=== PATIENT | female | born 1995 | race Caucasian/White ===

== ENCOUNTER 2020-06-21 14:05 | Inpatient (IN) | payer OTHER ==
[2020-06-21] MEDS ORDERED: AMPICILLIN - 2 GM in SODIUM CHLORIDE 100 ML IVPB ONE (14:15)
[2020-06-21 14:55] LABS: BASO % 0.6 % (0-2.0); EOS % 0.2 % (0-4.5); HEMATOCRIT 41.8 % (32.4-45.2); HEMOGLOBIN 13.9 GM/dL (10.7-15.3); LYMPH % 12.4 % (8-40); MCHC 33.3 g/dl (32.0-36.0); MEAN PLT VOLUME 9.6 fl (7.5-11.1); MONO % 2.8 % (3.8-10.2); PLATELET COUNT 194 K/MM3 (134-434); RBC 4.81 M/mm3 (3.60-5.2); RDW 13.4 % (11.6-15.6); RETICULOCYTES 2.08 % (0.5-1.5); WHITE BLOOD COUNT 13.4 K/mm3 (4.0-10.0)
[2020-06-21 14:57] LABS: INR 0.96 (0.83-1.09); PROTHROMBIN TIME (PATIENT) 11.6 SEC (9.7-13.0)
[2020-06-21 15:00] LABS: ACTIVATED PTT 26.2 SECONDS (25.2-36.5)
[2020-06-21 15:14] LABS: POTASSIUM 3.6 mmol/L (3.5-5.1)
[2020-06-21 15:15] LABS: CALCIUM 9.1 mg/dL (8.5-10.1)
[2020-06-21 15:16] LABS: BLOOD UREA NITROGEN 4.1 mg/dL (7-18)
[2020-06-21 15:19] LABS: CREATININE 0.6 mg/dL (0.55-1.3); URIC ACID 4.6 mg/dL (2.6-7.2)
[2020-06-21] MEDS ORDERED: AMPICILLIN SODIUM 2 GM VIAL ONE (16:07)
[2020-06-21] MEDS ORDERED: OXYTOCIN 30 UNITS in 0.9% NS 30 UNIT/500 ML INFUS.BAG IVPB ONE (16:07)
[2020-06-21] MEDS: ELECTROLYTE-148 SOLN 1,000 ML IV SCH (16:30)
[2020-06-21] MEDS: OXYTOCIN 30 UNITS in 0.9% NS 30 UNIT/500 ML INFUS.BAG IVPB SCH (17:15)
[2020-06-21 17:20] VITALS: BMI 35.9
[2020-06-21] MEDS ORDERED: ACETAMINOPHEN 325 MG TABLET (FP) ONE (20:15)
[2020-06-21] MEDS ORDERED: ACETAMINOPHEN 325 MG TABLET (FP) PO ONE (20:30)
[2020-06-21] MEDS ORDERED: AMPICILLIN SODIUM 1 GM VIAL ONE (20:39)
[2020-06-21] MEDS: AMPICILLIN SODIUM 1 GM VIAL IVPB SCH (20:40)
[2020-06-21] MEDS ORDERED: BUTORPHANOL TARTRATE 1 MG/ML VIAL IVPB ONE (21:23)
[2020-06-21] MEDS ORDERED: ACETAMINOPHEN 325 MG TABLET (FP) PO PRN (21:23)
[2020-06-21] MEDS ORDERED: BUTORPHANOL TARTRATE 1 MG/ML VIAL IVPB PRN (21:24)
[2020-06-21] MEDS ORDERED: BUTORPHANOL TARTRATE 2 MG/ML VIAL ONE (22:41)
[2020-06-22] MEDS ORDERED: AMPICILLIN SODIUM 1 GM VIAL ONE (00:38)
[2020-06-22] MEDS: AMPICILLIN SODIUM 1 GM VIAL IVPB SCH ×3 (00:40→09:59)
[2020-06-22] MEDS ORDERED: FENTANYL/BUPIVACAINE/NS/PF - PCEA - 50 ML DISP.SYRIN EP ONE (00:48)
[2020-06-22] MEDS ORDERED: PCA PUMP NR ONE (00:48)
[2020-06-22] MEDS ORDERED: BUPIVACAINE HCL/PF 0.25% (2.5MG/ML) 10 ML VIAL ONE (00:55)
[2020-06-22] MEDS: FENTANYL/BUPIVACAINE/NS/PF - PCEA - 50 ML DISP.SYRIN EP SCH (01:15)
[2020-06-22] MEDS ORDERED: NALOXONE HCL 0.4 MG/ML VIAL IVPUSH PRN (01:19)
[2020-06-22] MEDS: ELECTROLYTE-148 SOLN 1,000 ML IV SCH (01:25)
[2020-06-22] MEDS ORDERED: OXYTOCIN 20 UNITS in 0.9% NS 20 UNIT/1,000 ML INFUS.BAG IV ONE (01:50)
[2020-06-22] MEDS: OXYTOCIN 20 UNITS in 0.9% NS 20 UNIT/1,000 ML INFUS.BAG IV SCH (04:14)
[2020-06-22] MEDS ORDERED: METHYLERGONOVINE MALEATE 0.2 MG/1 ML AMP IM PRN (04:32)
[2020-06-22] MEDS ORDERED: WITCH HAZEL 50% (TUCKS) 40 PAD/JAR PAD TP PRN (04:32)
[2020-06-22] MEDS ORDERED: BENZOCAINE 28 GM HEMORRHOIDAL OINTMENT TP PRN (04:32)
[2020-06-22] MEDS ORDERED: BENZOCAINE 20% 57 GM BOTTLE TP PRN (04:32)
[2020-06-22] MEDS ORDERED: BISACODYL 10 MG SUPP.RECT RC PRN (04:32)
[2020-06-22] MEDS ORDERED: NIFEdipine E.R. 30 MG TABLET ONE (05:14)
[2020-06-22] MEDS: NIFEdipine E.R. 30 MG TABLET PO SCH ×2 (05:15→10:08)
[2020-06-22] MEDS: IBUPROFEN 600 MG TABLET (FP) PO PRN ×2 (10:08→22:21)
[2020-06-22] MEDS: PRENATAL VITAMINS W/ FOLIC ACID TABLET (FP) PO SCH (10:08)
[2020-06-22] MEDS ORDERED: LABETALOL HCL 200 MG TABLET (FP) PO ONE (14:30)
[2020-06-22] MEDS ORDERED: LABETALOL HCL 200 MG TABLET (FP) PO PRN (22:00)
[2020-06-22] MEDS: ACETAMINOPHEN 325 MG TABLET (FP) PO PRN (22:21)
[2020-06-23 09:33] LABS: BASO % 0.3 % (0-2.0); EOS % 0.4 % (0-4.5); HEMOGLOBIN 12.4 GM/dL (10.7-15.3); LYMPH % 16.8 % (8-40); MCH 29.4 pg (25.7-33.7); MCHC 33.4 g/dl (32.0-36.0); MEAN CELL VOLUME 87.9 fl (80-96); MEAN PLT VOLUME 9.7 fl (7.5-11.1); MONO % 3.9 % (3.8-10.2); NEUT % 78.6 % (42.8-82.8); PLATELET COUNT 175 K/MM3 (134-434); RBC 4.21 M/mm3 (3.60-5.2); RDW 13.8 % (11.6-15.6); WHITE BLOOD COUNT 13.4 K/mm3 (4.0-10.0)
[2020-06-23] MEDS: PRENATAL VITAMINS W/ FOLIC ACID TABLET (FP) PO SCH (10:30)
[2020-06-23] MEDS: NIFEdipine E.R. 30 MG TABLET PO SCH (10:31)
[2020-06-23] MEDS: IBUPROFEN 600 MG TABLET (FP) PO PRN ×2 (10:31→16:13)
[2020-06-23] MEDS: ELECTROLYTE-148 SOLN 1,000 ML IV SCH ×2 (14:40→19:56)
[2020-06-23] MEDS: ACETAMINOPHEN 325 MG TABLET (FP) PO PRN (16:12)
[2020-06-23] MEDS: OXYTOCIN 30 UNITS in 0.9% NS 30 UNIT/500 ML INFUS.BAG IVPB SCH (19:57)
[2020-06-23] MEDS: OXYTOCIN 20 UNITS in 0.9% NS 20 UNIT/1,000 ML INFUS.BAG IV SCH (19:57)
[2020-06-23] MEDS: FENTANYL/BUPIVACAINE/NS/PF - PCEA - 50 ML DISP.SYRIN EP SCH (19:57)
[2020-06-23] MEDS: AMPICILLIN SODIUM 1 GM VIAL IVPB SCH (19:59)
[2020-06-23] MEDS ORDERED: SENNOSIDES/DOCUSATE COMBO (SENNA PLUS) TABLET (UD) PO PRN (22:00)
[2020-06-24] MEDS: PRENATAL VITAMINS W/ FOLIC ACID TABLET (FP) PO SCH (10:15)
[2020-06-24] MEDS: NIFEdipine E.R. 30 MG TABLET PO SCH (10:18)
[2020-06-24 12:43] VITALS: BP 135/70; PULSE 69; TEMP 98.2
== END 2020-06-24 12:35 | disposition home or self-care (01) | DRG 560 ==
LOC: JLDR 14:05 → J3W 06-22 08:57
PROVIDERS: ADMIT Obstetrics & Gynecology; ATTEND Obstetrics & Gynecology
PROC: 0HQ9XZZ Repair Perineum Skin, External Approach (ICD-10-PCS; principal; 2020-06-22)
PROC: 10E0XZZ Delivery of Products of Conception, External Approach (ICD-10-PCS; 2020-06-22)
PROC: 10907ZC Drainage of Amniotic Fluid, Therapeutic from Products of Conception, Via Natural or Artificial Opening (ICD-10-PCS; 2020-06-22)
DX: O70.0 First degree perineal laceration during delivery (principal); O14.95 Unspecified pre-eclampsia, complicating the puerperium; Z3A.36 36 weeks gestation of pregnancy; Z37.0 Single live birth
CPT/HCPCS: 36415; 59409; 80048; 82977; 83010; 84450; 84460; 84550; 85025; 85045; 85610; 85730; 86780; 86850; 86900; 86901; C9803; U0003

== ENCOUNTER 2020-07-24 20:42 | Emergency (ER) | payer OTHER ==
[2020-07-24 21:15] VITALS: TEMP 98.6; BMI 31.0
[2020-07-24] MEDS ORDERED: ACETAMINOPHEN 325 MG TABLET (FP) PO ONE (22:44)
[2020-07-24] MEDS ORDERED: ACETAMINOPHEN 325 MG TABLET (FP) ONE (22:50)
[2020-07-24 23:14] LABS: EPI CELLS >36 /uL (0-25.1); HYALINE CASTS 2 /uL (0-3.1); URINE APPEARANCE CLOUDY; URINE BACTERIA 246 /uL (0-1359); URINE BILIRUBIN NEGATIVE (NEGATIVE); URINE COLOR YELLOW; URINE GLUCOSE (UA) NEGATIVE (NEGATIVE); URINE KETONE NEGATIVE (NEGATIVE); URINE LEUK ESTERASE 1+ (NEGATIVE); URINE NITRITE NEGATIVE (NEGATIVE); URINE PROTEIN NEGATIVE (NEGATIVE); URINE RBC 20 /uL (0-23.9); URINE UROBILINOGEN 0.2 mg/dL (0.2-1.0); URINE WBC 67 /uL (0-25.8)
[2020-07-24 23:23] LABS: BASO % 0.4 % (0-2.0); EOS % 2.2 % (0-4.5); HEMATOCRIT 41.9 % (32.4-45.2); HEMOGLOBIN 13.7 GM/dL (10.7-15.3); LYMPH % 38.6 % (8-40); MCH 28.5 pg (25.7-33.7); MCHC 32.6 g/dl (32.0-36.0); MEAN CELL VOLUME 87.5 fl (80-96); MEAN PLT VOLUME 8.9 fl (7.5-11.1); MONO % 3.8 % (3.8-10.2); PLATELET COUNT 233 K/MM3 (134-434); RBC 4.79 M/mm3 (3.60-5.2); RDW 12.4 % (11.6-15.6); WHITE BLOOD COUNT 8.7 K/mm3 (4.0-10.0)
[2020-07-24 23:31] LABS: RETICULOCYTES 0.92 % (0.5-1.5)
[2020-07-24 23:50] LABS: CHLORIDE 108 mmol/L (98-107); POTASSIUM 4.3 mmol/L (3.5-5.1); SODIUM 140 mmol/L (136-145)
[2020-07-24 23:51] LABS: ALBUMIN 4.1 g/dl (3.4-5.0); ANION GAP 4 MMOL/L (8-16); BLOOD UREA NITROGEN 12.6 mg/dL (7-18); CALCIUM 9.4 mg/dL (8.5-10.1); CO2 28 mmol/L (21-32)
[2020-07-24 23:53] LABS: GLUCOSE,RANDOM 77 mg/dL (74-106)
[2020-07-24 23:54] LABS: CREATININE 0.9 mg/dL (0.55-1.3); SGOT/AST 32 U/L (15-37); SGPT/ALT 49 U/L (13-61)
[2020-07-24 23:57] LABS: BILIRUBIN,TOTAL 0.2 mg/dL (0.2-1); TOT PROT 7.8 g/dl (6.4-8.2)
[2020-07-24 23:58] LABS: ALK PHOS 141 U/L (45-117)
[2020-07-25 01:35] VITALS: BP 128/76; PULSE 72
== END 2020-07-25 01:35 | disposition home or self-care (01) ==
LOC: JER 20:42
DX: R51.9 Headache, unspecified (principal)
CPT/HCPCS: 36415; 71046-TC-FY; 80053; 81003; 83010; 84484; 84550; 85025; 85045; 93005; 93010; 99285-25